=== PATIENT | male | born 1985 | race Caucasian/White ===

== ENCOUNTER 2017-05-17 20:33 | Outpatient (CLI) | payer MEDICARE, OTHER, MEDICAID | END 2017-05-17 20:34 | disposition home or self-care (01) | LOC: SC 20:33 | PROVIDERS: ATTEND Internal Medicine Pulmonary Disease | DX: G47.33 Obstructive sleep apnea (adult) (pediatric) (principal) | CPT/HCPCS: 95810 ==

== ENCOUNTER 2017-06-14 13:31 | Outpatient (CLI) | payer MEDICARE, OTHER, MEDICAID | END 2017-06-14 13:32 | disposition home or self-care (01) | LOC: SC 13:31 | PROVIDERS: ATTEND Internal Medicine Pulmonary Disease | DX: G47.33 Obstructive sleep apnea (adult) (pediatric) (principal) | CPT/HCPCS: 99213; G0463; 99212 ==

== ENCOUNTER 2017-08-06 22:39 | Outpatient (CLI) | payer MEDICARE, OTHER, MEDICAID | END 2017-08-06 22:40 | disposition home or self-care (01) | LOC: SC 22:39 | PROVIDERS: ATTEND Internal Medicine Pulmonary Disease | DX: G47.33 Obstructive sleep apnea (adult) (pediatric) (principal); R00.1 Bradycardia, unspecified | CPT/HCPCS: 95811 ==

== ENCOUNTER 2017-08-18 08:00 | Outpatient (CLI) | payer MEDICARE, OTHER, MEDICAID | END 2017-08-18 08:01 | disposition home or self-care (01) | LOC: LAB.WCP 08:00 | PROVIDERS: ATTEND Family Medicine | DX: Z00.00 Encounter for general adult medical examination without abnormal findings (principal) | CPT/HCPCS: 36415; 86317 ==

== ENCOUNTER 2017-09-08 09:10 | Outpatient (CLI) | payer MEDICARE, OTHER, MEDICAID | END 2017-09-08 09:11 | disposition home or self-care (01) | LOC: SC 09:10 | PROVIDERS: ATTEND Nurse Practitioner Family | DX: G47.33 Obstructive sleep apnea (adult) (pediatric) (principal) | CPT/HCPCS: 99214 ==

== ENCOUNTER 2017-11-02 09:58 | Outpatient (CLI) | payer MEDICARE, OTHER, MEDICAID | END 2017-11-02 09:59 | disposition home or self-care (01) | LOC: SC 09:58 | PROVIDERS: ATTEND Nurse Practitioner Family | DX: G47.33 Obstructive sleep apnea (adult) (pediatric) (principal) | CPT/HCPCS: 99215; G0463; 99212 ==

== ENCOUNTER 2017-12-06 10:28 | Outpatient (CLI) | payer MEDICARE, OTHER, MEDICAID | END 2017-12-06 10:29 | disposition home or self-care (01) | LOC: SC 10:28 | PROVIDERS: ATTEND Nurse Practitioner Family | DX: G47.33 Obstructive sleep apnea (adult) (pediatric) (principal) | CPT/HCPCS: 99214; G0463; 99212 ==

== ENCOUNTER 2018-01-12 09:30 | Outpatient (CLI) | payer MEDICARE, OTHER, MEDICAID | END 2018-01-12 09:31 | disposition home or self-care (01) | LOC: SC 09:30 | PROVIDERS: ATTEND Nurse Practitioner Family | DX: G47.33 Obstructive sleep apnea (adult) (pediatric) (principal) | CPT/HCPCS: 99214; G0463; 99212 ==

== ENCOUNTER 2018-02-15 10:26 | Outpatient (CLI) | payer MEDICARE, OTHER, MEDICAID | END 2018-02-15 10:27 | disposition home or self-care (01) | LOC: SC 10:26 | PROVIDERS: ATTEND Nurse Practitioner Family | DX: G47.33 Obstructive sleep apnea (adult) (pediatric) (principal); R53.83 Other fatigue | CPT/HCPCS: 99214; G0463; 99212 ==

== ENCOUNTER 2018-04-11 08:53 | Outpatient (CLI) | payer MEDICARE, OTHER, MEDICAID | END 2018-04-11 08:54 | disposition home or self-care (01) | LOC: SC 08:53 | PROVIDERS: ATTEND Nurse Practitioner Family | DX: G47.33 Obstructive sleep apnea (adult) (pediatric) (principal) | CPT/HCPCS: 99214; G0463; 99212 ==

== ENCOUNTER 2018-05-12 10:28 | Outpatient (CLI) | payer MEDICARE, OTHER, MEDICAID | END 2018-05-12 10:29 | disposition home or self-care (01) | LOC: SC 10:28 | PROVIDERS: ATTEND Nurse Practitioner Family | DX: G47.33 Obstructive sleep apnea (adult) (pediatric) (principal); R51 Headache | CPT/HCPCS: 99214; G0463; 99212 ==

== ENCOUNTER 2018-06-20 13:46 | Outpatient (CLI) | payer MEDICARE, OTHER, MEDICAID | END 2018-06-20 13:47 | disposition EMS.NT | LOC: EMS 13:46 | PROVIDERS: ATTEND Surgery | DX: M79.601 Pain in right arm (principal); W17.89XA Other fall from one level to another, initial encounter; Y93.A1 Activity, exercise machines primarily for cardiorespiratory conditioning; Y92.838 Other recreation area as the place of occurrence of the external cause ==

== ENCOUNTER 2018-06-20 14:59 | Emergency (ER) | payer MEDICARE, OTHER, MEDICAID ==
--- NOTE | 2018-06-20 16:15 | ED Physician Documentation ---
PD HPI Fall - Stated complaint Stated Complaint: FALL/SHOULDER PX - Chief complaint Chief Complaint: Ext Problem - History obtained from History obtained from: Patient - History of Present Illness Mechanism of injury: Lost balance Fall distance: Standing position (he was on treadmill machine and bent to pick something up, lost balance and fell as it kept moving he feet. 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 denies: Focal weakness, Numbness, Near syncope, Altered mental status, LOC PD PAST MEDICAL HISTORY - Past Medical History Cardiovascular: None Respiratory: None Neuro: Other (developmental disorder) - Past Surgical History Past Surgical History: No - Present Medications Home Medications: Ambulatory Orders Medication Instructions Recorded Confirmed Gerd Med 08/08/13 08/08/13 Ibuprofen [Motrin] 600 mg PO Q6H PRN #30 tab 08/08/13 - Allergies Allergies/Adverse Reactions: Allergies Allergy/AdvReac Type Severity Reaction Status Date / Time No Known Drug Allergies Allergy Verified 06/20/18 15:15 - Social History Does the pt smoke?: No Smoking Status: Never smoker PD ED PE NORMAL - Vitals Vital signs reviewed: Yes - General General: Alert and oriented X 3, No acute distress, Well developed/nourished - HEENT HEENT: Atraumatic, PERRL, EOMI - Neck Neck: Supple, no meningeal sign, No adenopathy, Other (some tenderness right parietal area without deformity nor swelling. Mild tenderness bilaterally along cervical spine. No defomrity. ) - Cardiac Cardiac: RRR, No murmur - Respiratory Respiratory: Clear bilaterally, Other (no chestwall tenderness.) - Abdomen Abdomen: Soft, Non tender - Back Back: No CVA TTP - Derm Derm: Normal color, Warm and dry - Extremities Extremities: Other (right lateral elbow with tenderness, but no effusion and good ROM without pain. ) Results - Vitals Vitals: Oxygen O2 Source Room air - Rads (name of study) head and neck CT Radiology: Prelim report reviewed, EMP read contemporaneously (normal), See rad report right elbow Radiology: Prelim report reviewed, EMP read contemporaneously (no fractures.), See rad report PD MEDICAL DECISION MAKING - ED course Complexity details: reviewed results Departure - Departure Disposition: 01 Home, Self Care Clinical Impression: Injury while using gym equipment Elbow contusion Qualifiers: Encounter type: initial encounter Laterality: right Qualified Code(s): S50.01XA - Contusion of right elbow, initial encounter Head contusion Qualifiers: Encounter type: initial encounter Contusion of head detail: scalp Qualified Code(s): S00.03XA - Contusion of scalp, initial encounter Condition: Stable Record reviewed to determine appropriate education?: Yes Instructions: ED Head Injury Closed Comments: There are no fractures nor signs of internal bleeding on your head neck or elbow x-rays and scans. He will be sore in the back of the head from injuring and sore in the elbow as well for likely a couple of days. Use some Tylenol or ibuprofen as needed for pains. You should feel better after couple of days. Discharge Date/Time: 06/20/18 18:48
[2018-06-20] MEDS ORDERED: ACETAMINOPHEN 325 MG TABLET PO STA (16:43)
[2018-06-20] MEDS ORDERED: IBUPROFEN 600 MG TABLET PO STA (16:43)
--- NOTE | 2018-06-20 17:43 | XRAY Report ---
Reason: fell from treadmill, struck right elbow Procedure Date: 06/20/2018 Accession Number: [id number] / [id number] Procedure: XR - Elbow 3 View RT CPT Code: FULL RESULT: EXAM: RIGHT ELBOW RADIOGRAPHY EXAM DATE: 06/20/2018 05:25 PM. CLINICAL HISTORY: Fell from treadmill, struck right elbow. COMPARISON: None. TECHNIQUE: 3 views. FINDINGS: Bones: Normal. No fractures or bone lesions. Joints: Normal. No effusion. No subluxation. Soft Tissues: Normal. No soft tissue swelling. IMPRESSION: Normal elbow radiography. RAD[facility]
--- NOTE | 2018-06-20 18:07 | CT Report ---
Reason: fell from treadmill, struck head Procedure Date: 06/20/2018 Accession Number: [id number] / [id number] Procedure: CT - HEAD WO CPT Code: FULL RESULT: EXAM: CT HEAD EXAM DATE: 06/20/2018 05:09 PM. CLINICAL HISTORY: Fell from treadmill, struck head. COMPARISON: HEAD W/O 01/25/2016 7:20 PM. TECHNIQUE: Multiaxial CT images were obtained from the foramen magnum to the vertex. Reformats: Sagittal and coronal. IV contrast: None. In accordance with CT protocol optimization, one or more of the following dose reduction techniques were utilized for this exam: automated exposure control, adjustment of mA and/or KV based on patient size, or use of iterative reconstructive technique. FINDINGS: Parenchyma: No acute intraparenchymal hemorrhage. No evidence of mass or midline shift. Carlos-white differentiation is distinct. Unchanged coarse calcifications in the basal ganglia bilaterally. Unchanged 11 mm hypodense lesion in the left basal ganglia, likely a prominent perivascular space. Extraaxial Spaces: No subdural or epidural collections identified. Ventricles: Normal in size and position. Sinuses and Orbits: Imaged paranasal sinuses, orbits, and mastoids show no acute abnormality. Bones: No evidence of fracture or calvarial defect. Other: Nonspecific debris in the right external auditory canal. IMPRESSION: No acute intracranial findings. RADIA
--- NOTE | 2018-06-20 18:12 | CT Report ---
Reason: fell from treadmill, neck pain/struck head Procedure Date: 06/20/2018 Accession Number: [id number] / [id number] Procedure: CT - CERVICAL SPINE WO CPT Code: FULL RESULT: EXAM: CT CERVICAL SPINE WITHOUT CONTRAST DATE: 06/20/2018 05:09 PM. HISTORY: Fell from treadmill, neck pain/struck head. COMPARISONS: CERVICAL SPINE W/O 01/25/2016 7:24 PM. TECHNIQUE: Thin-section axial images were acquired of the cervical spine without contrast. Post-processing: Coronal and sagittal reformats. Other: None. In accordance with CT protocol optimization, one or more of the following dose reduction techniques were utilized for this exam: automated exposure control, adjustment of mA and/or KV based on patient size, or use of iterative reconstructive technique. FINDINGS: Alignment: Slight reversal of the normal cervical lordosis, which appears centered at C5-C6 and may be related to degenerative disc disease. Bones/discs: No acute fracture, subluxation, or compression deformity. Redemonstrated degenerative disc disease at C5-C6 and C6-C7. Degenerative subchondral cystic change to the superior and inferior endplates of C5 and C6. Musculature: Unremarkable. Other: The paravertebral and prevertebral soft tissues are unremarkable. The lung apices are clear. IMPRESSION: No acute fracture or malalignment of the cervical spine. RADIA
[2018-06-20 18:48] VITALS: BP 119/67
== END 2018-06-20 18:48 | disposition home or self-care (01) ==
LOC: ED 14:59
DX: S00.03XA Contusion of scalp, initial encounter (principal); S50.01XA Contusion of right elbow, initial encounter; M54.2 Cervicalgia; W31.89XA Contact with other specified machinery, initial encounter; Y93.A1 Activity, exercise machines primarily for cardiorespiratory conditioning
CPT/HCPCS: 70450; 72125; 73080; 99282; 99283; A9270

== ENCOUNTER 2018-07-14 10:45 | Outpatient (CLI) | payer MEDICARE, OTHER, MEDICAID | END 2018-07-14 10:46 | disposition home or self-care (01) | LOC: SC 10:45 | PROVIDERS: ATTEND Nurse Practitioner Family | DX: G47.33 Obstructive sleep apnea (adult) (pediatric) (principal) | CPT/HCPCS: 99214; G0463; 99212 ==

== ENCOUNTER 2018-09-14 10:15 | Outpatient (CLI) | payer MEDICARE, OTHER, MEDICAID | END 2018-09-14 10:16 | disposition home or self-care (01) | LOC: SC 10:15 | PROVIDERS: ATTEND Nurse Practitioner Family | DX: G47.33 Obstructive sleep apnea (adult) (pediatric) (principal) | CPT/HCPCS: 99214; G0463; 99212 ==

== ENCOUNTER 2018-11-08 | Outpatient (CLI) | payer MEDICARE, OTHER, MEDICAID | END 2018-11-08 12:47 | disposition home or self-care (01) | DX: G47.33 Obstructive sleep apnea (adult) (pediatric) (principal) | CPT/HCPCS: 99215; G0463; 99212 ==

== ENCOUNTER 2019-01-03 10:44 | Outpatient (CLI) | payer MEDICARE, OTHER, MEDICAID ==
[2019-01-03 12:10] VITALS: BP 90/60
--- NOTE | 2019-01-03 12:10 | SLEEP CARE CONSULTATION ---
Information from patient questionnaire entered by Anjelica Cueva. I have reviewed and concur with the information entered by Anjelica Cueva. This document represents the service I personally performed and the decisions made by me, Radha Douglas, RN, MSN, TANK WAGON DRIVER. History of Present Illness Previous diagnosis: Moderate, Obstructive Sleep Apnea-Hypopnea Syndrome AHI: 22.4 Reason for CPAP/BiPAP follow up: other (2 month) Equipment type: CPAP Equipment obtained from: [employer] Mask style: Full face Mask brand: Respironics Backup mask available: Yes (different style) Last cushion change: months HPI additional information: RT from [employer] came to fit mask and added a pad to base of headgear for improved comfort. Patient states mask more comfortable now. He feels he is using CPAP better since and not pulling off mask as much during sleep. Patient's mother is receiving calls from [employer] but unable to get a human to talk to clarify order. Thus I gave her [employer] [facility] [employer]'s number to contact someone and perhaps a different method of ordering such as email. She has not obtained updated supplies except when RT brings new mask or other supplies. None has been sent. His dryness symptoms have been reduced with use of saline nasal spray as needed. CPAP Compliance Data - Data Reviewed with Patient Average duration of nightly device use: 3.3 Compliance rate %: 23.3 (60 days) Current pressure setting (cmH2O): 9-11 Humidity settin Heated hose settin Average residual AHI: 5.7 Average large leak: 1 min 41 secs Subjective Patient concerns: reports: other (occipital headache with or without CPAP most of time, less with pad attachment to headgear. ). denies: aerophagia, mask discomfort, air blowing in eyes, mask leak noise, condensation in mask/hose, nasal congestion, dry mouth, nose, throat, epistaxis Observed to snore while using device: No Current pressure setting perceived as: comfortable On therapy, patient: reports: awakening more refreshed, more rested overall (when uses the CPAP through the night), other (still pulling off mask in sleep. ). denies: drowsiness while driving (does not drive) Initial [place] Sleepiness Scale score: 10 Current [place] Sleepiness Scale score: 11 Allergies and Home Medications Known drug allergies: No Home medication list reviewed: No (none) Review of Systems Review of systems same as previous: Yes Physical Exam Blood Pressure: 90/60 Cuff size: regular Heart Rate: 50 O2 Saturation: 99 Height: 5 ft 5 in Weight (kg): 155 lb 3.2 oz Weight change since last visit: lost 3 pounds Body Mass Index: 25.8 BMI Classification: Overweight Impression and Plan 1. Obstructive Sleep Apnea-Hypopnea Syndrome, moderate, with poor but better treatment compliance and slightly elevated residual AHI. So far this pressure range has had the best apnea control so far. His compliance has improved from 18% to 23 %. The patient is using CPAP most nights. On CPAP therapy, the patient is more rested overall. He had 14 nights of more than 4 hours of use and states feels he is more rested then. There is less daytime naps. For supply concerns, I gave his mother Bertrand's number so she can speak to someone about calls she is getting but unable to process as the computer phone call is not responding to her input. I also gave her the supply replacement list and discussed rationale for updating. Current list she has she feels is confusing. Perhaps updating his equipment might help him use CPAP better. Patient currently states nothing is bothering him about CPAP but still pulling mask most nights during sleep. However, it is unclear why he is taking off the mask. If he uses better with new equipment then a cause will be found. Since he struggles using CPAP con sistently through the night, I also discussed an oral appliance as treatment but his mother is unsure if will work for him or be as comfortable. At this time they both want to continue using CPAP due to benefit of sleepiness symptoms. Thus I emphasized the importance of patient using his CPAP with all sleep for best treatment benefit. He agreed with plan. Patient's apnea severity and rationale for treatment to reduce apnea, improve sleep quality and reduce cardiovascular and cerebrovascular events was reviewed. 2. Chronic occipital headache, unknown length of time. Patient states it is tender to touch but no swelling or skin irritation noted. The headache is most of time per inquiry but other times it is worse when he wakes and then he denies it is worse with CPAP mask. Thus it is unclear if cause from muscle skeletal, mask, hypoxia or other etilogy. Patient does have difficulty verbalizing his answers intermittently. I have asked his mother to discuss with Dr. Rodriguez in patient's appointment in 2 days and she agreed with plan. * Continue CPAP pressure at 9-11 cmH2O * Use CPAP with all sleep * Update supplies. * Notify me if snoring with mask or feeling that the pressure is too much or too little * Follow up with Dr Rodriguez re chronic occipital headache. * Return for follow up in 3 months, or sooner if concerns arise I spent 100% of this 30 minute visit face to face with the patient with greater than 50% of this was spent time counseling the patient and coordination of care.
== END 2019-01-03 10:45 | disposition home or self-care (01) ==
LOC: SC 10:44
PROVIDERS: ATTEND Nurse Practitioner Family
DX: G47.33 Obstructive sleep apnea (adult) (pediatric) (principal); R51 Headache
CPT/HCPCS: 99214; G0463; 99212

== ENCOUNTER 2019-01-05 08:00 | Outpatient (CLI) | payer MEDICARE, OTHER, MEDICAID | END 2019-01-05 23:59 | disposition home or self-care (01) | LOC: LAB.R 08:00 | PROVIDERS: ATTEND Family Medicine | DX: R30.0 Dysuria (principal) | CPT/HCPCS: 81002; 87086 ==

== ENCOUNTER 2019-06-05 14:32 | Outpatient (CLI) | payer MEDICARE, OTHER, MEDICAID ==
[2019-06-05 15:34] VITALS: BP 94/50
--- NOTE | 2019-06-05 15:34 | SLEEP CARE CONSULTATION ---
Information from patient questionnaire entered by Anjelica Cueva. I have reviewed and concur with the information entered by Anjelica Cueva. This document represents the service I personally performed and the decisions made by me, Radha Douglas, RN, MSN, BREAD OVEN OPERATOR. History of Present Illness Previous diagnosis: Moderate, Obstructive Sleep Apnea-Hypopnea Syndrome AHI: 22.4 Reason for follow up: three month Accompanied by: mother Equipment type: CPAP Equipment obtained from: [employer] Mask style: Full face Mask brand: Respironics Last cushion change: unknown HPI additional information: He followed up with Dr. Rodriguez re his occipital headache. Treatment included a heated rice bag to neck. He finally was able to get the right CPAP supplies. CPAP Compliance Data - Data Reviewed with Patient Average duration of nightly device use: 2.7 Compliance rate %: 12.2 (90 days)(16.7 for last 30) Current pressure setting (cmH2O): 9-11 Humidity settin Heated hose settin Average residual AHI: 3.3 Average large leak: 6 min 12 sec Subjective Patient concerns: reports: aerophagia (1 or more times a week relieved with burping and flatus ), mask discomfort (base of skull ), other (pulling off mask in sleep). denies: air blowing in eyes, mask leak noise, condensation in mask/hose, nasal congestion (not lately ), dry mouth, nose, throat, epistaxis Observed to snore while using device: No Current pressure setting perceived as: comfortable On therapy, patient: reports: sleeping better, more rested overall. denies: drowsiness while driving (does not drive ) Initial [place] Sleepiness Scale score: 10 Current [place] Sleepiness Scale score: 14 Allergies and Home Medications Known drug allergies: No Home medication list reviewed: Yes Allergy and home medication list: ibuprofen as needed. Review of Systems Review of systems same as previous: No (ear infection) Physical Exam Blood Pressure: 94/50 Cuff size: regular Heart Rate: 52 O2 Saturation: 97 Height: 5 ft 6 in Weight: 157 lb Weight change since last visit: gained 2 pounds Body Mass Index: 25.3 BMI Classification: Overweight Impression and Plan 1. Obstructive Sleep Apnea-Hypopnea Syndrome, moderate , with poor treatment compliance and good apnea control. On CPAP therapy, the patient has better sleep quality and is more rested overall when he uses CPAP. His compliance fell from 23% to 12.2%. It appears to be due to pulling off mask in sleep as well as not taking it with him on short trips. To reduce aerophagia, I will reduce autoCPAP pressure to 7-9cmH20. He and his mother are advised to contact me if pressure change uncomfortable. For mask discomfort, I will have the RT [employer] come out for a mask refitting. At that time she can check if he is changing his cushions often enough for comfort. Hopefully the above measures will assist him from pulling off mask and ability to use CPAP better. He is also encouraged to use CPAP when he goes on small vacations since he feels better with use to enjoy his vacation more. He is advised to use CPAP with all sleep. If he wakes with mask off, he is to put it back on. Patient's apnea severity and rationale for treatment to reduce apnea, improve sleep quality and reduce cardiovascular and cerebrovascular events was reviewed. . * * Change CPAP pressure to 7-9 cmH2O * Mask refitting * Use CPAP with all sleep * Notify me if snoring with mask or feeling that the pressure is too much or too little * Call this office if any problems using CPAP * Return for follow up in 2 months , or sooner if concerns arise Time Spent with Patient (minutes): 30 I spent 100% of this visit face to face with the patient with greater than 50% of this was spent time counseling the patient and coordination of care.
== END 2019-06-05 14:33 | disposition home or self-care (01) ==
LOC: SC 14:32
PROVIDERS: ATTEND Nurse Practitioner Family
DX: G47.33 Obstructive sleep apnea (adult) (pediatric) (principal)
CPT/HCPCS: 99214; G0463; 99212

== ENCOUNTER 2019-10-16 13:21 | Outpatient (CLI) | payer MEDICARE, OTHER, MEDICAID ==
[2019-10-16 14:33] VITALS: BP 86/50
--- NOTE | 2019-10-16 14:33 | SLEEP CARE CONSULTATION ---
Information from patient questionnaire entered by Anjelica Cueva. I have reviewed and concur with the information entered by Anjelica Cueva. This document represents the service I personally performed and the decisions made by me, Radha Douglas, RN, MSN, HOT STRIP FINISHER. History of Present Illness Service Date and Time: 10/16/2019 1321 Previous diagnosis: Moderate, Obstructive Sleep Apnea-Hypopnea Syndrome AHI: 22.4 (in 2018) Reason for follow up: other (4 month with pressure change) Accompanied by: mother Equipment type: CPAP Equipment obtained from: [employer] Mask style: Full face Mask brand: Respironics Backup mask available: Yes (yes ) Last cushion change: just recieved new supplies Prior sleep studies: Yes Year and Where: 2018 - [facility] Type of Sleep Study: Polysomnography HPI additional information: He did not get a mask refitting. But mask is okay. He moved into his own apartment a few weeks ago and he did not use CPAP for about a week in the transition of moving. CPAP Compliance Data - Data Reviewed with Patient Average duration of nightly device use: 3.1 Compliance rate %: 14.4 (90 days) Current pressure setting (cmH2O): 7-9 Humidity settin Heated hose settin Average residual AHI: 8.2 Central apnea: 1.0 Obstructive apnea: 3.9 Hypopnea: 3.2 Average large leak: 46 sec Subjective Patient concerns: reports: nasal congestion. denies: aerophagia (resolved with pressure reduction. ), mask discomfort, air blowing in eyes, mask leak noise, condensation in mask/hose, dry mouth, nose, throat, epistaxis Observed to snore while using device: No (sleeps alone) Current pressure setting perceived as: comfortable On therapy, patient: reports: more rested overall Initial [place] Sleepiness Scale score: 10 (in 2017) Current [place] Sleepiness Scale score: 10 Allergies and Home Medications Known drug allergies: No Home medication list reviewed: No (no changes) Review of Systems Review of systems same as previous: Yes Physical Exam Blood Pressure: 86/50 (no dizziness - runs low - checked by PCP in past) Cuff size: regular Heart Rate: 46 O2 Saturation: 99 Height: 5 ft 6 in Weight: 153 lb Body Mass Index: 24.7 BMI Classification: Healthy weight Impression and Plan 1. Obstructive Sleep Apnea-Hypopnea Syndrome, moderate, with poor treatment compliance and elevated residual AHI. On CPAP therapy, the patient reports he is more rested overall. His compliance is about the same as his last visit. Evidently he puts on the mask every night when he goes to bed but wakes in the morning with the mask off. It is unclear if it is due to discomfort later in night. The patient feels it is comfortable when going to sleep. The patients pressure will be changed to autoCPAP 9-10 cmH20 For elevation of residual AHI. Patient advised to contact me if pressure change is uncomfortable or if aerophagia resumes so that it can be adjusted. Goals for apnea control discussed. I also will order a mask refitting again to see why he is pulling off mask in sleep. Perhaps the pressure change will also reduce mask being removed. I advised him to strive to use it every night as he states he is more rested wit h use for maximum benefit of treatment. Since he generally runs a low blood pressure which has been checked by his PCP, he is advised of the importance of adequate hydration. Patient's apnea severity and rationale for treatment to reduce apnea, improve sleep quality and reduce cardiovascular and cerebrovascular events was reviewed. * * Change auto CPAP pressure to 9-10 cmH2O * Notify me if snoring with mask or feeling that the pressure is too much or too little * mask refitting * Call this office if any problems using CPAP * Return for follow up in 2 months , or sooner if concerns arise Visit Type: In Office Provider Statement: I spent 100% of the Face to Face Visit with the patient with greater than 50% spent counseling the patient and coordination of care.
== END 2019-10-16 13:22 | disposition home or self-care (01) ==
LOC: SC 13:21
PROVIDERS: ATTEND Nurse Practitioner Family
DX: G47.33 Obstructive sleep apnea (adult) (pediatric) (principal)
CPT/HCPCS: 99214; G0463; 99212

== ENCOUNTER 2020-03-04 11:02 | Outpatient (CLI) | payer MEDICARE, OTHER, MEDICAID ==
--- NOTE | 2020-03-04 12:02 | SLEEP CARE CONSULTATION ---
Information from patient questionnaire entered by Tamra Downey. I have reviewed and concur with the information entered by Tamra Downey. This document represents the service I personally performed and the decisions made by me, Swathi Fuentes ARNP. History of Present Illness Service Date and Time: 03/04/2020 1102 Previous diagnosis: Moderate, Obstructive Sleep Apnea-Hypopnea Syndrome AHI: 22.4 (IN 2018) Reason for follow up: other (2-month followup-pressure change) Equipment type: CPAP Equipment obtained from: [employer] (getting supplies as needed) Mask style: Full face Backup mask available: Yes (extra mask) Prior sleep studies: Yes Year and Where: 2017 - [facility] Type of Sleep Study: Polysomnography HPI additional information: HERSON HERRERA was diagnosed to have moderate, AHI 22.4, obstructive sleep apnea- hypopnea syndrome and returned today with mother for CPAP therapy two month pressure change follow-up. Sleep Study - Results Prior sleep studies: Yes Year and Where: 2017 - [facility] CPAP Compliance Data - Data Reviewed with Patient Average duration of nightly device use: 2 h 22 min Compliance rate %: 3.3 Current pressure setting (cmH2O): 9-11 Humidity settin Heated hose settin Average residual AHI: 5.3 Average large leak: 11 min 28 sec Subjective Missed days of use due to: reports: travel (gone for a week in January) Patient concerns: reports: mask leak noise, nasal congestion, other (always headache back of his head). denies: aerophagia, mask discomfort, air blowing in eyes, condensation in mask/hose, dry mouth, nose, throat, epistaxis Observed to snore while using device: No Current pressure setting perceived as: comfortable On therapy, patient: reports: other (Mother does not think there is a difference with using the CPAP therapy). denies: sleeping better, awakening more refreshed, being more awake and alert during the day, more rested overall Initial [place] Sleepiness Scale score: 10 (in 2017) Current [place] Sleepiness Scale score: 10 Allergies and Home Medications Drug allergies reviewed: Yes (NKDA) Home medication list reviewed: Yes (no changes) Review of Systems Review of systems same as previous: Yes (no changes) Physical Exam Heart Rate: 54 O2 Saturation: 94 Height: 5 ft 6 in Weight: 149 lb Body Mass Index: 24.0 BMI Classification: Healthy weight Impression and Plan 1. Obstructive Sleep Apnea-Hypopnea Syndrome, moderate, with poor treatment compliance and fair apnea control with elevated residual AHI. On CPAP therapy, the patient's mother is not sure it is helping and he does not states he feels any difference since starting the therapy. He is developmentally disabled and may not really understand directions or reasoning for wearing the CPAP mask. I did review again with mother about trying an oral device but she does not feel he will be any more compliant with using an oral appliance as a CPAP mask. He is also now living on his own and does not have anyone with him in the evening to make sure he is being compliant with use. He states he puts it on but wakes up without it on. He also went for a week vacation and did not take the machine because his mother was concerned that he may lose it on the plane ride. He still complains of nasal congestion. Nasal congestion can be reduced with increasing the CPAP humidity as shown on sample device. Saline nasal spray sample was also given to use prior to CPAP to clear nasal secretions and wash off any nasal allergens to facilitate nasal breathing. I also reinforced with him that he needs to keep his mask on all night. I will adjust pressure to try to reduce the residual AHI to 9-12 cm H2O and have them follow up again in 1-2 months. Patient's apnea severity and rationale for treatment to reduce apnea, improve sleep quality and reduce cardiovascular and cerebrovascular events was reviewed. * Change autoCPAP pressure to 9-12 cmH2O * Notify me if snoring with mask or feeling that the pressure is too much or too little * Call this office if any problems using CPAP * Return for follow up in 1-2 months , or sooner if concerns arise Counseling Topics: Spare mask Visit Type: In Office Time Spent with Patient (minutes): 20 Provider Statement: I spent 100% of the Face to Face Visit with the patient with greater than 50% spent counseling the patient and coordination of care.
== END 2020-03-04 11:03 | disposition home or self-care (01) ==
LOC: SC 11:02
PROVIDERS: ATTEND Nurse Practitioner Family
DX: G47.33 Obstructive sleep apnea (adult) (pediatric) (principal)
CPT/HCPCS: 99213; G0463; 99212

== ENCOUNTER 2020-05-08 12:03 | Outpatient (CLI) | payer MEDICARE, OTHER, MEDICAID ==
--- OUTSIDE RECORDS SUMMARY | 2020-05-08 12:06 | EXTERNAL MEDICAL SUMMARY RPT | Continuity of Care Document ---
:1985 Demographics Phone Unavailable Preferred Language Unknown Marital Status Unknown Mormon Affiliation Unknown Race Unknown Ethnic Group Unknown Author Organization [facility] Address [address] [phone] Phone Care Team Providers Name Role Phone [facility] Unavailable Unavailable Allergies date description facility [facility]ILL[facility] NO KNOWN ENVIRONMENTAL ALLERGIES [facility] NITROGLYCERIN [facility] Social History date description facility [phone]
--- NOTE | 2020-05-08 12:52 | SLEEP CARE CONSULTATION ---
Information from patient questionnaire entered by Anjelica Cueva. I have reviewed and concur with the information entered by Anjelica Cueva. This document represents the service I personally performed and the decisions made by , Swathi Fuentes ARNP. History of Present Illness Service Date and Time: 05/08/2020 1203 Previous diagnosis: Moderate, Obstructive Sleep Apnea-Hypopnea Syndrome AHI: 22.4 (in 2018) Reason for follow up: other (2 month) Equipment type: CPAP Equipment obtained from: [employer] Mask style: Full face Backup mask available: Yes (other mask) Last cushion change: unsure Prior sleep studies: Yes Year and Where: 2018 - [facility] HPI additional information: [place] HERRERA was diagnosed to have moderate, AHI 22.4, obstructive sleep apnea- hypopnea syndrome and returned today with his mother for CPAP therapy two month follow-up. CPAP Compliance Data - Data Reviewed with Patient Average duration of nightly device use: 1 hr 31 min Compliance rate %: 0 (60 days) Current pressure setting (cmH2O): 9-11 Humidity settin Heated hose settin Average residual AHI: 5.1 Average large leak: 4 min 44 sec Subjective Missed days of use due to: reports: other (might take it off when sleeping) Patient concerns: reports: dry mouth, nose, throat. denies: aerophagia, mask discomfort, air blowing in eyes, mask leak noise, condensation in mask/hose, nasal congestion, epistaxis, other Observed to snore while using device: No (unsure, lives alone) Current pressure setting perceived as: comfortable On therapy, patient: reports: sleeping better, awakening more refreshed, being more awake and alert during the day, more rested overall. denies: drowsiness while driving (doesn't drive) Initial [place] Sleepiness Scale score: 10 (in 2017) Current [place] Sleepiness Scale score: 13 Allergies and Home Medications Drug allergies reviewed: Yes (NKDA) Home medication list reviewed: Yes (no changes) Review of Systems Review of systems same as previous: Yes (no changes) Physical Exam Heart Rate: 84 O2 Saturation: 90 Height: 5 ft 6 in Weight: 149 lb Body Mass Index: 24.0 BMI Classification: Healthy weight Impression and Plan 1. Obstructive Sleep Apnea-Hypopnea Syndrome, moderate, with poor treatment compliance and fair apnea control. On CPAP therapy, the patient states he has better sleep quality and is more rested overall. Az is living in his own place now but does sometimes stay at his parents house. His mother states that when he is at home he tells her he is wearing his mask but he wakes up with the mask off in the morning. His data shows that he is putting most days but rarely wears the mask for 3 or more hours. He has also spent some time at his mothers home, then he decides to stay the night and does not remember to bring his CPAP with him. I reinforced with Az that he needs to wear his CPAP mask all night and to replace it when he finds if off at night to be able to feel less tired. He voiced understanding. I spoke with his mother about having another machine at her house that he could use when he does not bring his machine and stays the night. Mother does not think he would tolerate an oral appliance. I also reviewed with patient's mother about a new implantable device called Inspire. I asked her to look into it and think about this treatment option. He would need to be evaluated to see if he qualifies for this treatment. His mother voiced understanding and agreed to think about this option. We will follow up in 2 months to see how he is doing. * Continue auto CPAP pressure at 9-11 cmH2O * Notify me if snoring with mask or feeling that the pressure is too much or too little * Call this office if any problems using CPAP * Return for follow up in 2 months, or sooner if concerns arise Counseling Topics: Spare mask Visit Type: In Office Time Spent with Patient (minutes): 27 Provider Statement: I spent 100% of the Face to Face Visit with the patient with greater than 50% spent counseling the patient and coordination of care.
== END 2020-05-08 12:04 | disposition home or self-care (01) ==
LOC: SC 12:03
PROVIDERS: ATTEND Nurse Practitioner Family
DX: G47.33 Obstructive sleep apnea (adult) (pediatric) (principal)
CPT/HCPCS: 99213; G0463; 99212

== ENCOUNTER 2020-07-09 11:09 | Outpatient (CLI) | payer MEDICARE, OTHER, MEDICAID ==
--- NOTE | 2020-07-09 11:50 | SLEEP CARE CONSULTATION ---
Information from patient questionnaire entered by Anjelica Cueva. I have reviewed and concur with the information entered by Anjelica Cueva. This document represents the service I personally performed and the decisions made by , Swathi Fuentes ARNP. History of Present Illness Service Date and Time: 07/09/2020 1109 Previous diagnosis: Moderate, Obstructive Sleep Apnea-Hypopnea Syndrome AHI: 22.4 (in 2018) Reason for follow up: other (2 month ) Equipment type: CPAP Equipment obtained from: [employer] (getting supplies as needed) Mask style: Full face Backup mask available: Yes (other mask) Prior sleep studies: Yes Year and Where: 2018 - [facility] Type of Sleep Study: Polysomnography HPI additional information: HERSON HERRERA was diagnosed to have moderate, AHI 16.3, obstructive sleep apnea- hypopnea syndrome and returned today with his mother for CPAP therapy two month follow-up. CPAP Compliance Data - Data Reviewed with Patient Average duration of nightly device use: 2 hr 17 min Compliance rate %: 5 (60 days) Current pressure setting (cmH2O): 9-11 Humidity settin Heated hose settin Average residual AHI: 7.2 Central apnea: 0.8 Obstructive apnea: 4.5 Average large leak: 9 min 29 sec Subjective Patient concerns: reports: mask leak noise. denies: aerophagia, mask discomfort, air blowing in eyes, condensation in mask/hose, nasal congestion, dry mouth, nose, throat, epistaxis, other Current pressure setting perceived as: comfortable On therapy, patient: reports: sleeping better, awakening more refreshed, being more awake and alert during the day, more rested overall. denies: drowsiness while driving (does not drive) Initial [place] Sleepiness Scale score: 10 (in 2017) Current [place] Sleepiness Scale score: 13 Allergies and Home Medications Drug allergies reviewed: Yes (NKDA) Home medication list reviewed: Yes (no changes) Review of Systems Review of systems same as previous: Yes (no changes) Physical Exam Heart Rate: 54 O2 Saturation: 100 Height: 5 ft 6 in Weight: 150 lb Body Mass Index: 24.2 BMI Classification: Healthy weight Impression and Plan 1. Obstructive Sleep Apnea-Hypopnea Syndrome, moderate, with poor treatment compliance and fair apnea control. On CPAP therapy, the patient has better sleep quality and is more rested overall. His mother states he is more tired and has fallen asleep when playing cards with her. He is still waking up with the mask off of his face. He tells his mother that he puts the mask on every night. He stayed at his mother's home, he brought his device and she found the mask off in the morning despite her checking that it was on at bedtime. Mother knows he sleeps more than the requisite 8 hours but he is just not keeping the mask on. We discussed other options like oral appliance and the Inspire implantable device and mother would like to pursue evaluation for the implantable device Inspire. I agree this may be a viable option for him since he is failing CPAP therapy because he is not reaching compliance due to intolerance of mask at night. He may not have the mental capacity to understand what he is to do and he does state he puts it on every night but then finds it off every morning. He states he takes it off while he is asleep. I reinforced with him to leave mask on for all sleep and he voiced understanding. Patient's apnea severity and rationale for treatment to reduce apnea, improve sleep quality and reduce cardiovascular and cerebrovascular events was reviewed. * Continue auto CPAP pressure at 9-11 cmH2O * Referral to Julius Kowalski MD for evaluation for Inspire implant therapy * Notify me if snoring with mask or feeling that the pressure is too much or too little * Call this office if any problems using CPAP * Return for follow up in 3 months, or sooner if concerns arise Counseling Topics: Spare mask Visit Type: In Office Time Spent with Patient (minutes): 22 Provider Statement: I spent 100% of the Face to Face Visit with the patient with greater than 50% spent counseling the patient and coordination of care.
== END 2020-07-09 11:10 | disposition home or self-care (01) ==
LOC: SC 11:09
PROVIDERS: ATTEND Nurse Practitioner Family
DX: G47.33 Obstructive sleep apnea (adult) (pediatric) (principal)
CPT/HCPCS: 99213; G0463; 99212

== ENCOUNTER 2020-08-28 16:16 | Outpatient (CLI) | payer MEDICARE, OTHER, MEDICAID ==
[2020-08-28 20:57] LABS: BASOPHILS # (AUTO) 0.1 10^3/uL (0.0-0.1); BASOPHILS % (AUTO) 1.9 %; EOSINOPHILS % (AUTO) 0.6 %; HGB - HEMOGLOBIN 14.4 g/dL (14.0-18.0); LYMPHOCYTES # (AUTO) 2.4 10^3/uL (1.5-3.5); LYMPHOCYTES % (AUTO) 45.9 %; MEAN CORPUSCULAR HEMOGLOBIN 31.7 pg (27.0-31.0); MEAN CORPUSCULAR HGB CONC 32.7 g/dL (32.0-36.0); MEAN CORPUSCULAR VOLUME 96.9 fL (80.0-94.0); MEAN PLATELET VOLUME 9.7 fL (7.4-11.4); MONOCYTES # (AUTO) 0.5 10^3/uL (0.0-1.0); MONOCYTES % (AUTO) 9.8 %; NEUTROPHILS # (AUTO) 2.1 10^3/uL (1.5-6.6); NEUTROPHILS % (AUTO) 40.5 %; PLT - PLATELET COUNT 236 10^3/uL (130-450); RED BLOOD COUNT 4.54 10^6/uL (4.70-6.10); WHITE BLOOD COUNT 5.2 x10^3/uL (4.8-10.8)
[2020-08-28 21:06] LABS: CALCIUM 9.3 mg/dL (8.5-10.3); POTASSIUM 4.3 mmol/L (3.5-5.0)
[2020-08-28 21:20] LABS: ALBUMIN 4.4 g/dL (3.2-5.5); ALBUMIN/GLOBULIN RATIO 1.5 (1.0-2.2); BILIRUBIN,TOTAL 0.5 mg/dL (0.2-1.0); CREATININE 0.7 mg/dL (0.6-1.2); TOTAL PROTEIN 7.3 g/dL (6.7-8.2)
== END 2020-08-28 16:17 | disposition home or self-care (01) ==
LOC: LAB.N 16:16
PROVIDERS: ATTEND Family Medicine
DX: R15.9 Full incontinence of feces (principal)
CPT/HCPCS: 36415; 80053; 83690; 85025

== ENCOUNTER 2020-09-24 08:00 | Outpatient (CLI) | payer MEDICARE, OTHER, MEDICAID | END 2020-09-24 23:59 | disposition home or self-care (01) | LOC: RT 08:00 | PROVIDERS: ATTEND Family Medicine | DX: Z01.810 Encounter for preprocedural cardiovascular examination (principal) | CPT/HCPCS: 93005 ==

== ENCOUNTER 2020-09-24 11:28 | Outpatient (CLI) | payer MEDICARE, OTHER, MEDICAID ==
[2020-09-24] MEDS ORDERED: IOPAMIDOL-300 50 ML VIAL ONE (12:21)
[2020-09-24] MEDS ORDERED: IOVERSOL 320 100 ML VIAL IVP ONE ×2 (12:21→20:56)
--- NOTE | 2020-09-24 18:00 | CT Report ---
PROCEDURE: Abdomen/Pelvis W INDICATIONS: RECTAL INCONTINENCE CONTRAST: IV CONTRAST: Optiray 320 ml: 100 PO CONTRAST: Isovue 300 ml50 TECHNIQUE: After the administration of oral and intravenous contrast, 5 mm thick sections acquired from the diap hragms to the symphysis. 5 mm thick coronal and sagittal reformats were acquired. For radiation dos e reduction, the following was used: automated exposure control, adjustment of mA and/or kV accordin g to patient size. COMPARISON: CT abdomen pelvis 09/08/2011. FINDINGS: Image quality: Good. Motion artifact. ABDOMEN: Lung bases: Lung bases are clear. Heart size is normal. Solid organs: Liver is normal in size. No focal lesion seen. Gallbladder is unremarkable. Biliary sy stem is non dilated. Pancreas enhances normally. No splenomegaly. Small hypodense foci within the sp catarino. These likely represent hemangioma and some are seen on the remote CT from 2011. Suspect small h emangioma. No adrenal nodules. Kidneys demonstrate normal size and enhancement, without hydronephros is. Peritoneum and bowel: Bowel loops demonstrate normal wall thickness and caliber. Normal appendix. No free fluid or air. Nodes and vessels: No retroperitoneal or mesenteric adenopathy by size criteria. Aorta and inferior vena cava are normal in size. Miscellaneous: No ventral hernias. PELVIS: Genitourinary: Bladder is distended. No free fluid. Miscellaneous: No inguinal hernias or adenopathy. Bones: No suspicious bony lesions. No vertebral body compression fractures. Severe multilevel DDD w hich is most pronounced at L5-S1. Disc protrusion at L4-L5 suspected. Suspect additional disc protrus ions. IMPRESSION: 1. No bowel obstruction. No free fluid. 2. 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 -MRI lumbar spine May be helpful for further evaluation. 3. Distended urinary bladder. 4. Small hypodense foci within the spleen are again seen. These likely represent hemangioma. Reviewed by: Raul Boykin MD on 09/24/2020 5:58 PM PDT Approved by: Raul Boykin MD on 09/24/2020 5:58 PM PDT Station ID: [id number]
[2020-09-24] MEDS ORDERED: IOPAMIDOL-300 50 ML VIAL PO ONE (20:57)
== END 2020-09-24 11:29 | disposition home or self-care (01) ==
LOC: DI 11:28
PROVIDERS: ATTEND Family Medicine
DX: R15.9 Full incontinence of feces (principal); M51.36 Other intervertebral disc degeneration, lumbar region; N32.89 Other specified disorders of bladder; Z01.810 Encounter for preprocedural cardiovascular examination
CPT/HCPCS: 74177; 93005; Q9967

== ENCOUNTER 2020-10-18 08:37 | Outpatient (CLI) | payer MEDICARE, OTHER, MEDICAID | END 2020-10-18 08:38 | disposition home or self-care (01) | LOC: DI 08:37 | PROVIDERS: ATTEND Family Medicine | DX: Z01.818 Encounter for other preprocedural examination (principal); R00.1 Bradycardia, unspecified; I87.8 Other specified disorders of veins | CPT/HCPCS: 93306 ==

== ENCOUNTER 2020-12-17 13:29 | Day surgery (SDC) | payer MEDICARE, OTHER, MEDICAID ==
[2020-12-17] MEDS ORDERED: LACTATED RINGERS 1,000 ML IV ONE ×2 (13:37→15:18)
--- NOTE | 2020-12-17 14:33 | ANESTHESIA ---
Pre-Anesthesia VS, & Labs - Diagnosis change in bowel habits - Procedure EGD/Colonoscopy Vital Signs: Temp Pulse Resp BP Pulse Ox 36.3 C L 71 12 139/75 H 98 12/17/20 13:37 12/17/20 13:37 12/17/20 13:37 12/17/20 13:37 12/17/20 13:37 Height: 5 ft 7 in Weight (kg): 67.8 kg Body Mass Index: 23.3 BMI Classification: Healthy weight - NPO >8 hours Home Medications and Allergies Allergies/Adverse Reactions: Allergies Allergy/AdvReac Type Severity Reaction Status Date / Time No Known Drug Allergies Allergy Verified 06/20/18 15:15 Anes History & Medical History - Anesthetic History Anesthesia Complications: reports: Difficult airway, Other-see comment (Pt has Down Syndrome- Pt's mother reports she was told he was a difficult airway with a child-posadas surgery) Family history of Anesthesia Complications: Denies Family history of Malignant Hyperthermia: Denies - Medical History Cardiovascular: reports: None Pulmonary: reports: Sleep apnea Gastrointestinal: reports: Chronic diarrhea, Other Urinary: reports: None Neuro: reports: Other (developmental disorder) Musculoskeletal: reports: None Endocrine/Autoimmune: reports: None Blood Disorders: reports: None Skin: reports: None Smoking Status: Never smoker Exam General: Alert, Cooperative Dental: Other (very narrow palate, crowded teeth, appears to have very anterior airway) Mouth Openin Fingerbreadth Neck Mobility: Normal Mallampati classification: IV Thyromental Distance: less than 4 cm Respiratory: Lungs clear Cardiovascular: Regular rate Plan Anesthesia Type: Total IV Consent for Procedure(s) Verified and Reviewed: Yes Code Status: Attempt Resuscitation ASA classification: 3-Severe systemic disease Is this case an emergency?: No
[2020-12-17] MEDS ORDERED: PROPOFOL 200 MG/20 ML VIAL IVP ONE ×2 (14:41→15:20)
[2020-12-17] MEDS ORDERED: MIDAZOLAM 2 MG/2 ML VIAL ONE (14:41)
[2020-12-17] MEDS ORDERED: HYDROmorphone 0.5 MG/0.5 ML SYRINGE IVP PRN (14:44)
[2020-12-17] MEDS ORDERED: NALOXONE 0.4 MG/ML VIAL IVP PRN (14:44)
[2020-12-17] MEDS ORDERED: ePHEDrine 50 MG/ML VIAL IVP PRN (14:44)
[2020-12-17] MEDS ORDERED: MORPHINE 2 MG/ML CARPUJECT IVP PRN (14:44)
[2020-12-17] MEDS ORDERED: METOCLOPRAMIDE 10 MG/2 ML VIAL IVP PRN (14:44)
[2020-12-17] MEDS ORDERED: ONDANSETRON 4 MG/2 ML VIAL IVP PRN (14:44)
[2020-12-17] MEDS ORDERED: ATROPINE ABBOJECT 1 MG/10 ML SYRINGE IVP PRN (14:44)
[2020-12-17] MEDS ORDERED: fentaNYL 100 MCG/2 ML VIAL IVP PRN (14:44)
[2020-12-17] MEDS ORDERED: LACTATED RINGERS 1,000 ML IV SCH (15:00)
--- NOTE | 2020-12-17 15:29 | ANESTHESIA POST OP EVALUATION ---
Anesthesia Post Eval - Post Anesthesia Eval Vitals: Last Vital Signs Temp 36 C L 12/17/20 15:18 Pulse 66 12/17/20 15:18 Resp 18 12/17/20 15:18 BP 97/41 L 12/17/20 15:18 Pulse Ox 99 12/17/20 15:18 CV Function Including HR & BP: Stable Pain Control: Satisfactory Nausea & Vomiting: Negative Mental Status: Baseline Respiratory Status: Airway Patent Hydration Status: Satisfactory Anesthesia Complications: None
[2020-12-17 15:43] VITALS: BP 93/50
== END 2020-12-17 13:30 | disposition home or self-care (01) ==
LOC: SDS 13:29
PROVIDERS: ATTEND Surgery
PROC: 0DB68ZX Excision of Stomach, Via Natural or Artificial Opening Endoscopic, Diagnostic (ICD-10-PCS; principal; 2020-12-17 14:45)
PROC: 0DBN8ZZ Excision of Sigmoid Colon, Via Natural or Artificial Opening Endoscopic (ICD-10-PCS; 2020-12-17 14:45)
DX: K29.60 Other gastritis without bleeding (principal); K31.89 Other diseases of stomach and duodenum; K21.9 Gastro-esophageal reflux disease without esophagitis; K63.89 Other specified diseases of intestine; K64.8 Other hemorrhoids; Q90.9 Down syndrome, unspecified; G47.30 Sleep apnea, unspecified
CPT/HCPCS: 43239; 45380; J7120

== ENCOUNTER 2022-11-10 11:33 | Outpatient (CLI) | payer MEDICARE, OTHER, MEDICAID ==
[2022-11-10 18:03] LABS: BASOPHILS # (AUTO) 0.1 10^3/uL (0.0-0.1); BASOPHILS % (AUTO) 2.1 %; EOSINOPHILS % (AUTO) 0.9 %; HCT - HEMATOCRIT 46.6 % (42.0-52.0); HGB - HEMOGLOBIN 15.1 g/dL (14.0-18.0); LYMPHOCYTES # (AUTO) 1.9 10^3/uL (1.5-3.5); LYMPHOCYTES % (AUTO) 43.5 %; MEAN CORPUSCULAR HEMOGLOBIN 31.1 pg (27.0-31.0); MEAN CORPUSCULAR HGB CONC 32.4 g/dL (32.0-36.0); MEAN CORPUSCULAR VOLUME 95.9 fL (80.0-94.0); MEAN PLATELET VOLUME 9.7 fL (7.4-11.4); MONOCYTES # (AUTO) 0.3 10^3/uL (0.0-1.0); MONOCYTES % (AUTO) 7.8 %; NEUTROPHILS # (AUTO) 1.9 10^3/uL (1.5-6.6); NEUTROPHILS % (AUTO) 44.1 %; PLT - PLATELET COUNT 234 10^3/uL (130-450); RED BLOOD COUNT 4.86 10^6/uL (4.70-6.10); RED CELL DISTRIBUTION WIDTH 12.7 % (12.0-15.0); WHITE BLOOD COUNT 4.4 x10^3/uL (4.8-10.8)
[2022-11-10 18:15] LABS: ALBUMIN 4.4 g/dL (3.2-5.5); ALBUMIN/GLOBULIN RATIO 1.4 (1.0-2.2); ALKALINE PHOSPHATASE 64 IU/L (42-121); ALT ALANINE AMINOTRANSFERASE 20 IU/L (10-60); AST ASPARTATE AMINOTRANSFERASE 27 IU/L (10-42); BILIRUBIN,TOTAL 0.7 mg/dL (0.2-1.0); BUN - BLOOD UREA NITROGEN 15 mg/dL (6-20); CALCIUM 8.9 mg/dL (8.5-10.3); CARBON DIOXIDE - CO2 29 mmol/L (21-32); CHLORIDE 102 mmol/L (101-111); CHOL/HDL RATIO 2.8 (<5.0); CHOLESTEROL 177 mg/dL; CREATININE 0.7 mg/dL (0.6-1.2); GFR - MDRD 127 (>89); GLUCOSE 82 mg/dL (70-100); HDL CHOLESTEROL 63 mg/dL; LDL CHOLESTEROL,CALCULATED 104 mg/dL; LDL/HDL RATIO 1.7 (<3.6); POTASSIUM 3.9 mmol/L (3.5-5.0); SODIUM 139 mmol/L (135-145); TOTAL PROTEIN 7.5 g/dL (6.7-8.2); TRIGLYCERIDES 50 mg/dL; VLDL CHOLESTEROL 10 mg/dL
[2022-11-10 18:23] LABS: THYROID STIMULATING HORMONE 2.97 uIU/mL (0.34-5.60)
== END 2022-11-10 11:34 | disposition home or self-care (01) ==
LOC: LAB.N 11:33
PROVIDERS: ATTEND Nurse Practitioner Family
DX: Z00.00 Encounter for general adult medical examination without abnormal findings (principal)
CPT/HCPCS: 36415; 80053; 80061; 83721; 84153; 84443; 85025